=== PATIENT | male | born 1950 | race Caucasian/White ===

== ENCOUNTER 2016-05-14 13:08 | Emergency (ER) | payer MEDICARE, MEDICAID ==
[2016-05-14 13:08] VITALS: BMI 26.4
[2016-05-14] MEDS ORDERED: ONDANSETRON HCL 4 MG/2 ML VIAL IV ONE ×2 (13:31→16:16)
[2016-05-14] MEDS ORDERED: NS 1,000 ML IV ONE (13:31)
[2016-05-14] MEDS ORDERED: MORPHINE 4 MG/ML INJECTION IV ONE (13:31)
[2016-05-14 13:33] VITALS: TEMP 98.3
--- NOTE | 2016-05-14 13:36 | EDPRACDOC ---
<Marko Stacy - Last Filed: 05/14/16 14:25> <Basil Coley - Last Filed: 05/14/16 18:10> - General Information Mode Of Arrival: Ambulance - History of Present Illness Onset: 2 DAYS Pain Location: Reports: Periumbilical Pain Context: Reports: Spontaneous Pain Severity: Moderate Pain Quality: Reports: Cramping Pain Radiation: Reports: No Radiation Adult Abdominal History: Denies: Abdominal Surgery Modifying Factors: improves with: Nothing Associated Signs & Symptoms: Reports: Nausea, Vomiting <Larry Tirado - Last Filed: 05/14/16 19:44> - General Information Chief Complaint: Abdominal Pain Stated Complaint: N/V Home Medications: Home Medications Amlodipine [Norvasc] 10 mg PO DAILY 07/19/14 Insulin Novolog 70/30 MIX [NOVOLOG 70-30 Mix] 60 units SQ QHS 07/19/14 Lisinopril [Prinivil] 40 mg PO DAILY 07/19/14 Aspirin (OrangeEnteric Coated) [Ecotrin] 325 mg PO DAILYWM #30 tablet 07/22/14 Atorvastatin Calcium [Lipitor] 40 mg PO QHS 09/23/15 Pregabalin [Lyrica] 100 mg PO TID 09/23/15 Carvedilol [Coreg] 12.5 mg PO BID 05/14/16 Gabapentin [Neurontin] 600 mg PO TID 05/14/16 HYDROmorphone [Dilaudid] 2 mg PO TID PRN 05/14/16 Insulin Novolog 70/30 MIX [Novolog 70-30 Mix] 40 units SQ QAM 05/14/16 Ondansetron [Zofran Odt] 4 mg PO TID PRN #10 tab.rapdis 05/14/16 Oxymorphone HCl [Opana ER] 10 mg PO BID 05/14/16 Pantoprazole Sodium [Protonix] 40 mg PO DAILY #30 tab 05/14/16 Sucralfate [Carafate] 1 gm PO TID PRN #60 tablet 05/14/16 Allergies/Adverse Reactions: Allergies Allergy/AdvReac Type Severity Reaction Status Date / Time Penicillins Allergy Rash Verified 05/14/16 13:36 - History of Present Illness HPI: MD NOTE SEEN AND EXAMINED; OLD RECORDS REVIEWED; ADDITIONAL LABS/DIAGNOSTICS ORDERED. NOTE----PT DOES HAVE CHRONIC PAIN (Marko Stacy) C/O SOB, constant new FLOWERS, N/V and periumbilical pain x 2 days. Denies fever, cough, sore throat, cp, changes in urine nor BM. No hx of FLOWERS. 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 No new focal deficits. No anticoags. Med hx = Dm, HTN, chronic pain. + smoker. -etoh. (Larry Tirado) Other History: SOB, FLOWERS x 2 days (Larry Tirado) ED Past Medical History - History Reviewed Yes Nurses notes reviewed and agree except as marked - Patient Medical History Neurological History: Reports: Cerebrovascular Accident (07/2014: right upper extremity.) Cardiac History: Reports: Hypertension. Denies: Coronary Artery Disease, Atrial Fibrillation, Congestive Heart Failure Respiratory History: Reports: COPD GI/ History: Reports: Gastroesophageal Reflux Psychological History: Denies: Depression, Substance Use Disorder Systemic History: Reports: Diabetes (Type 2). Denies: Anemia Surgical History: Reports: Other (R [id number] amputation for gangrene 2012. ) - Family Medical History Reports: Diabetes (Uncle). Denies: Hypertension, Cancer, Stroke, Cardiac Disorders - Social Medical History Smoking Status: Heavy tobacco smoker (5 or more cigarettes/day or daily pipe/ cigar) Social History: Denies: Substance Use Disorder <Larry Tirado - Last Filed: 05/14/16 19:44> EDM Review of Systems - Review of Systems ROS Negative Except as Marked: Yes All systems reviewed and were negative except as marked Respiratory: Shortness of Breath Gastrointestinal: Nausea, Pain, Vomiting Neurological: Headache Endocrine: Diabetes <Larry Tirado - Last Filed: 05/14/16 19:44> - Physical Exam Constitutional: Alert, Agitated Oriented to: Time, Person, Place - HEENT Head: Normal Eye Exam: negative: Conjunctival Injection, Scleral Icterus Oropharynx: negative: Drooling TMJ: Normal Nose: No Symptoms Reported Neck: Normal - Respiratory/Cardiovascular Respiratory: Normal - CTA Cardiovascular: Normal - GI Auscultation: Normal Palpation: Normal Tenderness: Moderate, Periumbilical - Musculoskeletal Back: Normal Extremities: Normal - Integumentary Skin: Normal - Neurologic Cranial Nerve: Normal Cerebellar: Normal Mood Description: Agitated Thought: Coherent Perception: Normal <Larry Tirado - Last Filed: 05/14/16 19:44> - Physical Exam Last recorded Vital Signs: Last Vital Signs Temp 98.3 F 05/14/16 13:15 Pulse 86 05/14/16 18:19 Resp 18 05/14/16 18:19 BP 170/80 05/14/16 18:19 Pulse Ox 96 05/14/16 18:19 Oxygen Pulse Oxygen Saturation 96 O2 Device Room Air Oxygen Flow Rate Fraction of Inspired Oxygen ( FIO2) (Marko Stacy) (Basil Coley) (Larry Tirado) - Results 05/14/16 13:35 05/14/16 13:35 <Marko Stacy - Last Filed: 05/14/16 14:25> - Results 05/14/16 13:35 05/14/16 13:35 <Basil Coley - Last Filed: 05/14/16 18:10> - Results 05/14/16 13:35 05/14/16 13:35 - EKG EKG #1 EKG Time: : -: Yes EKG interpreted by me Rate: bpm: 88 [place]: RAD Rhythm: NSR Block: None Hypertrophy: None ST: Normal - Diagnostic Imaging Chest Image interpreted by: Radiologist Abdomen Image interpreted by: Radiologist <Larry Tirado - Last Filed: 05/14/16 19:44> - Results WBC 14.7 xk/uL (3.8-10.8) H 05/14/16 13:35 RBC 5.49 xM/uL (4.70-6.10) 05/14/16 13:35 Hgb 16.5 g/dL (14.0-18.0) 05/14/16 13:35 Hct 47.5 % (42-52) 05/14/16 13:35 MCV 87 fL (80-94) 05/14/16 13:35 MCH 30.0 pg (27-32) 05/14/16 13:35 MCHC 34.6 g/dl (33-36) 05/14/16 13:35 RDW 13.4 % (11.5-14.5) 05/14/16 13:35 Plt Count 138 xk/uL (130-400) 05/14/16 13:35 MPV 10.0 fL (7.4-10.4) 05/14/16 13:35 Neut % (Auto) 81.0 % (45-76) H 05/14/16 13:35 Lymph % (Auto) 13.0 % (17-44) L 05/14/16 13:35 [place] % (Auto) 4.6 % (3-10) 05/14/16 13:35 Eos % (Auto) 0.6 % (0-5) 05/14/16 13:35 Baso % (Auto) 0.8 % (0-2) 05/14/16 13:35 Absolute Neuts (auto) 11.91 xk/uL (1.7-8.2) H 05/14/16 13:35 Absolute Lymphs (auto) 1.91 xk/uL (0.65-4.75) 05/14/16 13:35 PT 11.6 SEC (9.2-11.2) H 05/14/16 13:35 INR 1.1 05/14/16 13:35 APTT 29.0 SEC (22-35) 05/14/16 13:35 D-Dimer Quant (PE/DVT) 634 ng/mL (<500) H 05/14/16 13:35 Sodium 139 mEq/L (137-146) 05/14/16 13:35 Potassium 4.0 mEq/L (3.5-5.1) 05/14/16 13:35 Chloride 105 mEq/L (98-107) 05/14/16 13:35 Carbon Dioxide 23 mMOL/L (22-33) 05/14/16 13:35 Anion Gap 15 mEq/L (8-16) 05/14/16 13:35 BUN 19 MG/DL (9-20) 05/14/16 13:35 Creatinine 1.10 MG/DL (0.66-1.25) 05/14/16 13:35 Estimated GFR (MDRD) > 60 mL/min (>=60) 05/14/16 13:35 Glucose 224 MG/DL (70-99) H 05/14/16 13:35 Calculated Osmolality 277 MOs/Kg (270-290) 05/14/16 13:35 Calcium 9.3 MG/DL (8.4-10.2) 05/14/16 13:35 Total Bilirubin 1.0 MG/DL (0.2-1.3) 05/14/16 13:35 AST 35 IU/L (17-59) 05/14/16 13:35 ALT 44 IU/L (21-72) 05/14/16 13:35 Alkaline Phosphatase 129 IU/L (50-160) 05/14/16 13:35 Troponin I < 0.01 ng/mL (<.04) 05/14/16 17:05 Total Protein 8.2 G/DL (6.3-8.2) 05/14/16 13:35 Albumin 4.0 G/DL (3.5-5.0) 05/14/16 13:35 Lipase 38 U/L (23-300) 05/14/16 13:35 Urine Color Yellow 05/14/16 15:35 Urine Clarity Clear 05/14/16 15:35 Urine pH 5.0 (5.0-8.0) 05/14/16 15:35 Ur Specific [place] 1.025 (1.003-1.035) 05/14/16 15:35 Urine Protein 3+ (NEG/TRACE) H 05/14/16 15:35 Urine Glucose (UA) 2+ (NEGATIVE) 05/14/16 15:35 Urine Ketones 1+ (NEGATIVE) H 05/14/16 15:35 Urine Occult Blood 2+ (NEG/TRACE) H 05/14/16 15:35 Urine Nitrite Neg (NEGATIVE) 05/14/16 15:35 Urine Bilirubin Neg (NEGATIVE) 05/14/16 15:35 Urine Urobilinogen <2.0 MG/DL (0-1) 05/14/16 15:35 Ur Leukocyte Esterase Neg (NEGATIVE) 05/14/16 15:35 Urine RBC 10-20 (0-2) H 05/14/16 15:35 Urine WBC 2-5 (0-2) H 05/14/16 15:35 Ur Epithelial Cells Occ 05/14/16 15:35 Urine Bacteria Few (NEG/FEW) 05/14/16 15:35 Urine Mucus Mod (NEG/OCC) H 05/14/16 15:35 Urine Sperm Occ (NONE) H 05/14/16 15:35 Lab Results 05/14/16 05/14/16 05/14/16 17:05 15:35 13:35 WBC RBC Hgb Hct MCV MCH MCHC RDW Plt Count MPV Neut % (Auto) Lymph % (Auto) [place] % (Auto) Eos % (Auto) Baso % (Auto) Absolute Neuts (auto) Absolute Lymphs (auto) PT 11.6 H INR 1.1 APTT 29.0 D-Dimer Quant (PE/DVT) Sodium Potassium Chloride Carbon Dioxide Anion Gap BUN Creatinine Estimated GFR (MDRD) Glucose Calculated Osmolality Calcium Total Bilirubin AST ALT Alkaline Phosphatase Troponin I < 0.01 Total Protein Albumin Lipase Urine Color Yellow Urine Clarity Clear Urine pH 5.0 Ur Specific [place] 1.025 Urine Protein 3+ H Urine Glucose (UA) 2+ Urine Ketones 1+ H Urine Occult Blood 2+ H Urine Nitrite Neg Urine Bilirubin Neg Urine Urobilinogen <2.0 Ur Leukocyte Esterase Neg Urine RBC 10-20 H Urine WBC 2-5 H Ur Epithelial Cells Occ Urine Bacteria Few Urine Mucus Mod H Urine Sperm Occ H 05/14/16 05/14/16 05/14/16 13:35 13:35 13:35 WBC 14.7 H RBC 5.49 Hgb 16.5 Hct 47.5 MCV 87 MCH 30.0 MCHC 34.6 RDW 13.4 Plt Count 138 MPV 10.0 Neut % (Auto) 81.0 H Lymph % (Auto) 13.0 L [place] % (Auto) 4.6 Eos % (Auto) 0.6 Baso % (Auto) 0.8 Absolute Neuts (auto) 11.91 H Absolute Lymphs (auto) 1.91 PT INR APTT D-Dimer Quant (PE/DVT) 634 H Sodium Potassium Chloride Carbon Dioxide Anion Gap BUN Creatinine Estimated GFR (MDRD) Glucose Calculated Osmolality Calcium Total Bilirubin AST ALT Alkaline Phosphatase Troponin I < 0.01 Total Protein Albumin Lipase 38 Urine Color Urine Clarity Urine pH Ur Specific [place] Urine Protein Urine Glucose (UA) Urine Ketones Urine Occult Blood Urine Nitrite Urine Bilirubin Urine Urobilinogen Ur Leukocyte Esterase Urine RBC Urine WBC Ur Epithelial Cells Urine Bacteria Urine Mucus Urine Sperm 05/14/16 13:35 WBC RBC Hgb Hct MCV MCH MCHC RDW Plt Count MPV Neut % (Auto) Lymph % (Auto) [place] % (Auto) Eos % (Auto) Baso % (Auto) Absolute Neuts (auto) Absolute Lymphs (auto) PT INR APTT D-Dimer Quant (PE/DVT) Sodium 139 Potassium 4.0 Chloride 105 Carbon Dioxide 23 Anion Gap 15 BUN 19 Creatinine 1.10 Estimated GFR (MDRD) > 60 Glucose 224 H Calculated Osmolality 277 Calcium 9.3 Total Bilirubin 1.0 AST 35 ALT 44 Alkaline Phosphatase 129 Troponin I Total Protein 8.2 Albumin 4.0 Lipase Urine Color Urine Clarity Urine pH Ur Specific [place] Urine Protein Urine Glucose (UA) Urine Ketones Urine Occult Blood Urine Nitrite Urine Bilirubin Urine Urobilinogen Ur Leukocyte Esterase Urine RBC Urine WBC Ur Epithelial Cells Urine Bacteria Urine Mucus Urine Sperm (Marko Stacy) (Basil Coley) - Diagnostic Imaging Chest 05/14/16 16:12 EXAM: CHEST 2 VIEW COMPARISON: 09/23/2015 FINDINGS: Bibasilar atelectasis. Heart is normal size. No effusions. No acute bony abnormality. IMPRESSION: Bibasilar atelectasis. Electronically Signed By: William Ron M.D. On: 05/14/2016 14:17 (Larry Tirado) Abdomen 05/14/16 16:13 EXAM: CT ANGIOGRAPHY CHEST CT ABDOMEN AND PELVIS WITH CONTRAST TECHNIQUE: Multidetector CT imaging of the chest was performed using the standard protocol during bolus administration of intravenous contrast. Multiplanar CT image reconstructions and MIPs were obtained to evaluate the vascular anatomy. Multidetector CT imaging of the abdomen and pelvis was performed using the standard protocol during bolus administration of intravenous contrast. CONTRAST: 100 cc Isovue 370 COMPARISON: None. FINDINGS: CTA CHEST FINDINGS Mediastinum/Nodes: There is no axillary lymphadenopathy. No mediastinal lymphadenopathy. There is no hilar lymphadenopathy. The heart size is normal. No pericardial effusion. Question mild circumferential wall thickening in the distal esophagus. No filling defects identified in the opacified pulmonary arteries to suggest the presence of an acute pulmonary embolus. No thoracic aortic aneurysm. No evidence for dissection flap in the thoracic aorta. Incidental note made of bovine arch vessel anatomy, a normal variant. Lungs/Pleura: Fine architectural detail of the lungs obscured by patient breathing motion during image acquisition. There is some compressive atelectasis in the lower lungs bilaterally. No evidence for airspace pulmonary edema. Minimal paraseptal emphysema noted in the upper lobes, right greater than left. No pleural effusion. Musculoskeletal: Bone windows reveal no worrisome lytic or sclerotic osseous lesions. CT ABDOMEN and PELVIS FINDINGS Hepatobiliary: No focal abnormality within the liver parenchyma. There is no evidence for gallstones, gallbladder wall thickening, or pericholecystic fluid. No intrahepatic or extrahepatic biliary dilation. Pancreas: No focal mass lesion. No dilatation of the main duct. No intraparenchymal cyst. No peripancreatic edema. Spleen: No splenomegaly. No focal mass lesion. Adrenals/Urinary Tract: 2.9 cm left adrenal nodule has an average attenuation of 36 Hounsfield units on portal venous phase imaging. Renal delayed imaging shows an average attenuation of 15 Hounsfield units. Relative enhancement washout is 58%, consistent with benign adrenal adenoma. Right adrenal gland is normal. 12 mm well-defined low-density lesion interpolar right kidney is compatible with a cyst. There are other 3-5 mm tiny hypodensities in both kidneys, too small to characterize but likely cysts as well. No hydronephrosis. No evidence for hydroureter. The urinary bladder appears normal for the degree of distention. Stomach/Bowel: Stomach is nondistended. No gastric wall thickening. No evidence of outlet obstruction. Duodenum is normally positioned as is the ligament of Treitz. No small bowel wall thickening. No small bowel dilatation. The terminal ileum is normal. The appendix is normal. No gross colonic mass. No colonic wall thickening. No substantial diverticular change. Vascular/Lymphatic: There is abdominal aortic atherosclerosis without aneurysm. There is no gastrohepatic or hepatoduodenal ligament lymphadenopathy. No intraperitoneal or retroperitoneal lymphadenopathy. No pelvic sidewall lymphadenopathy. Reproductive: Prostate gland is enlarged with mass effect on the bladder base. Seminal vesicles unremarkable. Other: No intraperitoneal free fluid. Musculoskeletal: Deformity of the right femoral neck suggests previous right femoral neck fracture although the femoral neck now appears healed although there is marked varus angulation. Probable focus of avascular necrosis in the right femoral head. Bone windows reveal no worrisome lytic or sclerotic osseous lesions. Review of the MIP images confirms the above findings. IMPRESSION: 1. No CT evidence for acute pulmonary embolus. 2. Apparent mild circumferential wall thickening in the mid and distal esophagus. Esophagitis could have this appearance. 3. 2.9 cm left adrenal adenoma. 4. Bilateral tiny renal cysts. 5. Abdominal aortic atherosclerosis. 6. Prostatomegaly. 7. Chronic deformity of the right femoral neck suggests remote femoral neck fracture with residual marked varus angulation. Area in the right femoral head suggest avascular necrosis. These findings are likely not related to a history of slipped capital femoral epiphysis given the relative lack of remodeling in the acetabulum. Electronically Signed By: Gilles Medel M.D. On: 05/14/2016 15:16 (Larry Tirado) <Marko Stacy - Last Filed: 05/14/16 14:25> - Departure Yes I personally saw and evaluated the patient. 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 Instructions: Esophagitis (ED) Referrals: Hadley Serra MD [Primary Care Provider] - One Week Sukhwinder Del Real MD [Staff Physician] - One Week Prescriptions: New Pantoprazole Sodium [Protonix] 40 mg PO DAILY #30 tab Sucralfate [Carafate] 1 gm PO TID PRN #60 tablet PRN Reason: Pain Ondansetron [Zofran Odt] 4 mg PO TID PRN #10 tab.rapdis PRN Reason: Nausea/Vomiting No Action Lisinopril [Prinivil] 40 mg PO DAILY Insulin Novolog 70/30 MIX [NOVOLOG 70-30 Mix] 60 units SQ QHS Amlodipine [Norvasc] 10 mg PO DAILY Aspirin (OrangeEnteric Coated) [Ecotrin] 325 mg PO DAILYWM #30 tablet Pregabalin [Lyrica] 100 mg PO TID Atorvastatin Calcium [Lipitor] 40 mg PO QHS Oxymorphone HCl [Opana ER] 10 mg PO BID HYDROmorphone [Dilaudid] 2 mg PO TID PRN PRN Reason: Pain Gabapentin [Neurontin] 600 mg PO TID Carvedilol [Coreg] 12.5 mg PO BID Insulin Novolog 70/30 MIX [Novolog 70-30 Mix] 40 units SQ QAM Additional Instructions: Follow up with ortho Dr Del Real for possible AVN of right hip. Take zofran for nausea. Take protonix and carafate for esophagitis. Return to ED for any new or worsening symptoms.
[2016-05-14 13:51] LABS: AUTOMATED BASOPHIL 0.8 % (0-2); AUTOMATED EOSINOPHIL 0.6 % (0-5); AUTOMATED MONOCYTE 4.6 % (3-10)
[2016-05-14 13:56] LABS: BLOOD UREA NITROGEN 19 MG/DL (9-20); CALCIUM 9.3 MG/DL (8.4-10.2); CALCULATED OSMOLALITY 277 MOs/Kg (270-290); CHLORIDE 105 mEq/L (98-107); GLUCOSE 224 MG/DL (70-99); SODIUM LEVEL 139 mEq/L (137-146); TOTAL PROTEIN 8.2 G/DL (6.3-8.2)
--- NOTE | 2016-05-14 14:19 | DIRPT ---
CLINICAL DATA: Shortness of breath. Nausea, vomiting, periumbilical pain for 2 days. EXAM: CHEST 2 VIEW COMPARISON: 09/23/2015 FINDINGS: Bibasilar atelectasis. Heart is normal size. No effusions. No acute bony abnormality. IMPRESSION: Bibasilar atelectasis. Electronically Signed By: William Ron M.D. On: 05/14/2016 14:17
--- NOTE | 2016-05-14 14:24 | DIRPT ---
CLINICAL DATA: Acute onset headache and nausea and vomiting 2 days ago. Previous stroke. EXAM: CT HEAD WITHOUT CONTRAST TECHNIQUE: Contiguous axial images were obtained from the base of the skull through the vertex without intravenous contrast. COMPARISON: 09/23/2015 FINDINGS: There is no evidence of intracranial hemorrhage, brain edema, or other signs of acute infarction. There is no evidence of intracranial mass lesion or mass effect. No abnormal extraaxial fluid collections are identified. Old lacunar infarcts are again seen involving the right lisa and posterior limb of left internal capsule. No evidence of hydrocephalus. No skull abnormality identified. IMPRESSION: No acute intracranial abnormality. Old lacunar infarcts involving the right lisa and posterior limb of left internal capsule. Electronically Signed By: Kraig Ramirez M.D. On: 05/14/2016 14:22
[2016-05-14] MEDS ORDERED: Pharmacy Review for Metformin - IV Contrast Given SCH (15:00)
--- NOTE | 2016-05-14 15:19 | DIRPT ---
CLINICAL DATA: Two-day history of chest and abdominal pain. EXAM: CT ANGIOGRAPHY CHEST CT ABDOMEN AND PELVIS WITH CONTRAST TECHNIQUE: Multidetector CT imaging of the chest was performed using the standard protocol during bolus administration of intravenous contrast. Multiplanar CT image reconstructions and MIPs were obtained to evaluate the vascular anatomy. Multidetector CT imaging of the abdomen and pelvis was performed using the standard protocol during bolus administration of intravenous contrast. CONTRAST: 100 cc Isovue 370 COMPARISON: None. FINDINGS: CTA CHEST FINDINGS Mediastinum/Nodes: There is no axillary lymphadenopathy. No mediastinal lymphadenopathy. There is no hilar lymphadenopathy. The heart size is normal. No pericardial effusion. Question mild circumferential wall thickening in the distal esophagus. No filling defects identified in the opacified pulmonary arteries to suggest the presence of an acute pulmonary embolus. No thoracic aortic aneurysm. No evidence for dissection flap in the thoracic aorta. Incidental note made of bovine arch vessel anatomy, a normal variant. Lungs/Pleura: Fine architectural detail of the lungs obscured by patient breathing motion during image acquisition. There is some compressive atelectasis in the lower lungs bilaterally. No evidence for airspace pulmonary edema. Minimal paraseptal emphysema noted in the upper lobes, right greater than left. No pleural effusion. Musculoskeletal: Bone windows reveal no worrisome lytic or sclerotic osseous lesions. CT ABDOMEN and PELVIS FINDINGS Hepatobiliary: No focal abnormality within the liver parenchyma. There is no evidence for gallstones, gallbladder wall thickening, or pericholecystic fluid. No intrahepatic or extrahepatic biliary dilation. Pancreas: No focal mass lesion. No dilatation of the main duct. No intraparenchymal cyst. No peripancreatic edema. Spleen: No splenomegaly. No focal mass lesion. Adrenals/Urinary Tract: 2.9 cm left adrenal nodule has an average attenuation of 36 Hounsfield units on portal venous phase imaging. Renal delayed imaging shows an average attenuation of 15 Hounsfield units. Relative enhancement washout is 58%, consistent with benign adrenal adenoma. Right adrenal gland is normal. 12 mm well-defined low-density lesion interpolar right kidney is compatible with a cyst. There are other 3-5 mm tiny hypodensities in both kidneys, too small to characterize but likely cysts as well. No hydronephrosis. No evidence for hydroureter. The urinary bladder appears normal for the degree of distention. Stomach/Bowel: Stomach is nondistended. No gastric wall thickening. No evidence of outlet obstruction. Duodenum is normally positioned as is the ligament of Treitz. No small bowel wall thickening. No small bowel dilatation. The terminal ileum is normal. The appendix is normal. No gross colonic mass. No colonic wall thickening. No substantial diverticular change. Vascular/Lymphatic: There is abdominal aortic atherosclerosis without aneurysm. There is no gastrohepatic or hepatoduodenal ligament lymphadenopathy. No intraperitoneal or retroperitoneal lymphadenopathy. No pelvic sidewall lymphadenopathy. Reproductive: Prostate gland is enlarged with mass effect on the bladder base. Seminal vesicles unremarkable. Other: No intraperitoneal free fluid. Musculoskeletal: Deformity of the right femoral neck suggests previous right femoral neck fracture although the femoral neck now appears healed although there is marked varus angulation. Probable focus of avascular necrosis in the right femoral head. Bone windows reveal no worrisome lytic or sclerotic osseous lesions. Review of the MIP images confirms the above findings. IMPRESSION: 1. No CT evidence for acute pulmonary embolus. 2. Apparent mild circumferential wall thickening in the mid and distal esophagus. Esophagitis could have this appearance. 3. 2.9 cm left adrenal adenoma. 4. Bilateral tiny renal cysts. 5. Abdominal aortic atherosclerosis. 6. Prostatomegaly. 7. Chronic deformity of the right femoral neck suggests remote femoral neck fracture with residual marked varus angulation. Area in the right femoral head suggest avascular necrosis. These findings are likely not related to a history of slipped capital femoral epiphysis given the relative lack of remodeling in the acetabulum. Electronically Signed By: Gilles Medel M.D. On: 05/14/2016 15:16
[2016-05-14 15:29] LABS: PT-INR 1.1
[2016-05-14 15:49] LABS: LEUKOCYTES/URINE NEG (NEGATIVE); NITRITE/URINE NEG (NEGATIVE); URINE OCCULT BLOOD 2+ (NEG/TRACE)
[2016-05-14] MEDS ORDERED: HYDROmorphone 1 MG INJECTION IV ONE (16:16)
[2016-05-14 18:22] VITALS: BP 170/80; PULSE 86
== END 2016-05-14 18:19 | disposition home or self-care (01) ==
LOC: ED 13:08
DX: K20.9 Esophagitis, unspecified (principal); M87.051 Idiopathic aseptic necrosis of right femur
CPT/HCPCS: 36415; 70450; 71020; 71275; 74177; 80053; 81001; 83690; 84484; 85025; 85379; 85610; 85730; 93005; 96361; 96374; 96375; 96376; 99284; A9698; J1170; J2270; J2405